=== PATIENT | female | born 1990 | race Caucasian/White ===

== ENCOUNTER 2019-02-23 12:56 | Emergency (ER) | payer OTHER ==
[~2019-02-23] VITALS: Ht 165.1 cm; Wt 88.5 kg
[2019-02-23 13:03] VITALS: Ht 165.1 cm; Wt 88.5 kg
[2019-02-23 17:36] VITALS: BP 129/87
== END 2019-02-23 17:36 | disposition home or self-care (01) ==
LOC: ED 12:56
DX: S29.012A Strain of muscle and tendon of back wall of thorax, initial encounter (principal); X58.XXXA Exposure to other specified factors, initial encounter; Y93.89 Activity, other specified; Y92.89 Other specified places as the place of occurrence of the external cause; Y99.8 Other external cause status